=== PATIENT | female | born 1995 | race Caucasian/White ===

== ENCOUNTER 2017-04-23 11:28 | Emergency (ER) | payer SELFPAY ==
[2017-04-23] MEDS: SOD CHLORIDE 0.9% 1,000 ML IV (16:04)
[2017-04-23] MEDS: ACETAMINOPHEN 325 MG TAB PO (16:05)
[2017-04-23 16:10] LABS: ADD UMIC YES; UR ASCORBIC ACID 40 mg/dL (NEGATIVE); UR BACTERIA FEW /HPF (NONE SEEN); UR BILIRUBIN (Dip) NEGATIVE (NEGATIVE); UR BLOOD (Dip) NEGATIVE (NEGATIVE); UR CLARITY CLOUDY (CLEAR); UR COLOR YELLOW (YELLOW); UR GLUCOSE (Dip) NEGATIVE (NEGATIVE); UR KETONES (Dip) TRACE mg/dL (NEGATIVE); UR LEUKOCYTE ESTERASE (Dip) 3+ Leu/ul (NEGATIVE); UR MUCUS FEW /HPF (NONE SEEN); UR NITRITE (Dip) NEGATIVE (NEGATIVE); UR RBC 4 /HPF (0-5); UR SPECIFIC GRAVITY (Dip) 1.026 (1.003-1.030); UR SQUAMOUS EPITHELIAL CELL MODERATE /HPF (FEW); UR TOTAL PROTEIN (Dip) NEGATIVE (NEGATIVE); UR UROBILINOGEN (Dip) 1+ mg/dL (NEGATIVE); UR WBC 16 /HPF (0-5)
[2017-04-23 16:52] LABS: ADD MAN DIFF? NO
[2017-04-23 16:57] LABS: BASOPHIL # 0.1 10^3/ul (0.0-0.1); BASOPHILS % 0.4 % (0.0-2.0); EOSINOPHILS # 0.4 10^3/ul (0.0-0.5); EOSINOPHILS % 2.5 % (0.0-7.0); HEMATOCRIT 40.6 % (37.0-47.0); HEMOGLOBIN 13.4 g/dl (12.0-16.0); LYMPHOCYTES % 19.1 % (15.0-51.0); MEAN CORPUSCULAR HEMOGLOBIN 27.7 pg (29.0-33.0); MEAN CORPUSCULAR VOLUME 84.1 fl (82.0-101.0); MEAN PLATELET VOLUME 11.2 fl (7.4-10.4); MONOCYTE # 0.6 10^3/ul (0.3-0.9); MONOCYTES % 3.7 % (0.0-11.0); NEUTROPHIL # 11.6 10^3/ul (1.6-7.5); NEUTROPHILS % 73.9 % (39.0-77.0); PLATELET COUNT 303 10^3/UL (140-415); RED BLOOD COUNT 4.83 10^6/ul (4.20-5.40); RED CELL DISTRIBUTION WIDTH 14.5 % (11.5-14.5)
[2017-04-23 16:57] LABS: WHITE BLOOD COUNT 15.8 10^3/ul (4.8-10.8)
== END 2017-04-23 18:05 | disposition home or self-care (01) ==
LOC: FTE 11:28
DX: O99.89 Other specified diseases and conditions complicating pregnancy, childbirth and the puerperium (principal); R51 Headache; R10.2 Pelvic and perineal pain; Z3A.12 12 weeks gestation of pregnancy
CPT/HCPCS: 36415; 76801; 81001; 84702; 85025; 86900; 86901; 99285-25

== ENCOUNTER 2017-08-23 09:30 | Inpatient (IN) | payer MEDICAID ==
[2017-08-23 10:08] LABS: ADD MAN DIFF? NO
[2017-08-23 10:11] LABS: WHITE BLOOD COUNT 18.9 10^3/ul (4.8-10.8)
[2017-08-23 10:11] LABS: BASOPHILS % 0.2 % (0.0-2.0); HEMATOCRIT 36.6 % (37.0-47.0); HEMOGLOBIN 11.9 g/dl (12.0-16.0); LYMPHOCYTES # 0.8 10^3/ul (0.8-2.9); MEAN CORPUSCULAR HEMOGLOBIN 27.9 pg (29.0-33.0); MEAN CORPUSCULAR HGB CONC 32.5 g/dl (32.0-37.0); MEAN CORPUSCULAR VOLUME 85.7 fl (82.0-101.0); MEAN PLATELET VOLUME 11.1 fl (7.4-10.4); MONOCYTE # 1.1 10^3/ul (0.3-0.9); MONOCYTES % 5.8 % (0.0-11.0); NEUTROPHIL # 16.9 10^3/ul (1.6-7.5); NEUTROPHILS % 89.4 % (39.0-77.0); PLATELET COUNT 263 10^3/UL (140-415); RED BLOOD COUNT 4.27 10^6/ul (4.20-5.40); RED CELL DISTRIBUTION WIDTH 13.7 % (11.5-14.5)
[2017-08-23 10:31] LABS: ALANINE AMINOTRANSFERASE 16 IU/L (13-69); ALBUMIN 3.7 g/dl (3.3-4.9); ALBUMIN/GLOBULIN RATIO 1.05; ALKALINE PHOSPHATASE 178 IU/L (42-121); ANION GAP 15 (8-16); ASPARTATE AMINO TRANSFERASE 14 IU/L (15-46); BILIRUBIN,INDIRECT 0.5 mg/dl (0-1.1); BILIRUBIN,TOTAL 0.5 mg/dl (0.2-1.3); BLOOD UREA NITROGEN 6 mg/dl (7-20); CARBON DIOXIDE 21 mmol/L (21-31); CHLORIDE 106 mmol/L (97-110); CREATININE 0.51 mg/dl (0.44-1.00); GLUCOSE 103 mg/dl (70-220); POTASSIUM 3.6 mmol/L (3.5-5.1); SODIUM 138 mmol/L (135-144); TOTAL PROTEIN 7.2 g/dl (6.1-8.1)
[2017-08-23 10:36] LABS: URINE BLOOD (Dip) POC Negative (NEGATIVE); URINE GLUCOSE (Dip) POC Negative (NEGATIVE); URINE KETONES (Dip) POC 3+ (NEGATIVE); URINE LEUKOCYTE EST (Dip) POC Negative (NEGATIVE); URINE NITRITE (Dip) POC Negative (NEGATIVE); URINE TOTAL PROTEIN POC 1+ (NEGATIVE)
[2017-08-23] MEDS: LACTATED RINGER'S 1,000 ML IV ×2 (11:58→20:35)
[2017-08-23] MEDS ORDERED: ACETAMINOPHEN 325 MG TAB PO (12:00)
[2017-08-23] MEDS: CEFTRIAXONE 1 GM/NS 50 ML IVPB (12:24)
[2017-08-23 14:17] LABS: ADD UMIC YES; UR ASCORBIC ACID 20 mg/dL (NEGATIVE); UR BACTERIA FEW /HPF (NONE SEEN); UR BILIRUBIN (Dip) 1+ mg/dL (NEGATIVE); UR BLOOD (Dip) NEGATIVE (NEGATIVE); UR CLARITY TURBID (CLEAR); UR COLOR AMBER (YELLOW); UR GLUCOSE (Dip) NEGATIVE (NEGATIVE); UR KETONES (Dip) 2+ mg/dL (NEGATIVE); UR LEUKOCYTE ESTERASE (Dip) NEGATIVE Leu/ul (NEGATIVE); UR MUCUS MANY /HPF (NONE SEEN); UR NITRITE (Dip) NEGATIVE (NEGATIVE); UR RBC 2 /HPF (0-5); UR SPECIFIC GRAVITY (Dip) 1.027 (1.003-1.030); UR SQUAMOUS EPITHELIAL CELL MODERATE /HPF (FEW); UR TOTAL PROTEIN (Dip) 2+ mg/dl (NEGATIVE); UR UROBILINOGEN (Dip) NEGATIVE (NEGATIVE); UR WBC 15 /HPF (0-5)
[2017-08-24] MEDS: LACTATED RINGER'S 1,000 ML IV (03:48)
[2017-08-24] MEDS ORDERED: DOCUSATE SODIUM 100 MG CAP PO (09:00)
[2017-08-24] MEDS ORDERED: FERROUS SULFATE (EC) 325 MG TAB PO (09:00)
[2017-08-24] MEDS ORDERED: PRENATAL VITAMIN PO (09:00)
[2017-08-24] MEDS: SOD CHLORIDE 0.9% 1,000 ML IV (11:41)
[2017-08-24] MEDS: CEFTRIAXONE 1 GM/NS 50 ML IVPB (11:42)
[2017-08-24] MEDS ORDERED: CEFTRIAXONE 1 GM INJ IVPB (12:00)
== END 2017-08-24 14:30 | disposition home or self-care (01) | DRG 781 ==
LOC: OBT 09:30 → L-D 09:33 → OBT 11:28 → L-D 10:50
DX: O26.893 Other specified pregnancy related conditions, third trimester (principal); R19.7 Diarrhea, unspecified; O21.2 Late vomiting of pregnancy; Z3A.29 29 weeks gestation of pregnancy
CPT/HCPCS: 80053; 81001; 81003; 85025; 87075

== ENCOUNTER 2017-10-15 14:54 | Outpatient (CLI) | payer MEDICAID | END 2017-10-15 18:10 | disposition home or self-care (01) | LOC: OBT 14:54 → L-D 14:54 → OBT 18:10 | DX: O62.9 Abnormality of forces of labor, unspecified (principal); Z3A.37 37 weeks gestation of pregnancy | CPT/HCPCS: 76818 ==

== ENCOUNTER 2017-10-26 15:06 | Inpatient (IN) | payer MEDICAID ==
[2017-10-26] MEDS ORDERED: LIDOCAINE 1% (MPF) 30 ML INJ INJ (16:00)
[2017-10-26] MEDS ORDERED: METHYLERGONOVINE 0.2 MG INJ IM (16:00)
[2017-10-26] MEDS ORDERED: OXYTOCIN 30 UNITS/LR 500 ML IV ×2 (16:00)
[2017-10-26] MEDS ORDERED: BUTORPHANOL 1 MG INJ IV (16:00)
[2017-10-26] MEDS ORDERED: CARBOPROST 250 MCG INJ IM (16:00)
[2017-10-26] MEDS ORDERED: MISOPROSTOL 200 MCG TAB PR (16:00)
[2017-10-26 16:24] LABS: ADD MAN DIFF? NO
[2017-10-26 16:28] LABS: BASOPHILS % 0.3 % (0.0-2.0); EOSINOPHILS # 0.1 10^3/ul (0.0-0.5); HEMATOCRIT 33.6 % (37.0-47.0); HEMOGLOBIN 10.5 g/dl (12.0-16.0); LYMPHOCYTES # 2.6 10^3/ul (0.8-2.9); LYMPHOCYTES % 21.2 % (15.0-51.0); MEAN CORPUSCULAR HGB CONC 31.3 g/dl (32.0-37.0); MEAN PLATELET VOLUME 12.3 fl (7.4-10.4); MONOCYTE # 0.6 10^3/ul (0.3-0.9); MONOCYTES % 5.1 % (0.0-11.0); NEUTROPHIL # 8.7 10^3/ul (1.6-7.5); NEUTROPHILS % 72.1 % (39.0-77.0); PLATELET COUNT 273 10^3/UL (140-415); RED CELL DISTRIBUTION WIDTH 14.6 % (11.5-14.5)
[2017-10-26 16:28] LABS: WHITE BLOOD COUNT 12.1 10^3/ul (4.8-10.8)
[2017-10-26 16:47] LABS: INR 0.86; PROTIME 11.8 Sec (11.9-14.9); PT RATIO 0.9
[2017-10-26 16:48] LABS: PARTIAL THROMBOPLASTIN TIME 28.8 Sec (25.0-35.0)
[2017-10-26] MEDS: LACTATED RINGER'S 1,000 ML IV* (17:26)
[2017-10-26] MEDS: AMPICILLIN 2 GM/NS (PMX) 100 ML IV (17:28)
[2017-10-26] MEDS: DINOPROSTONE 10 MG VAG SUPP VAG (18:45)
[2017-10-26] MEDS: AMPICILLIN 1 GM/NS (PMX) 50 ML IV (20:51)
[2017-10-27] MEDS: AMPICILLIN 1 GM/NS (PMX) 50 ML IV ×6 (00:28→20:22)
[2017-10-27] MEDS: LACTATED RINGER'S 1,000 ML IV* ×3 (00:28→19:50)
[2017-10-27] MEDS: DINOPROSTONE 10 MG VAG SUPP VAG (11:58)
[2017-10-27] MEDS: MINERAL OIL LIGHT 10 ML VIAL TOP (21:00)
[2017-10-27] MEDS ORDERED: MISOPROSTOL 100 MCG TAB PO (21:00)
[2017-10-27 21:21] LABS: RAPID PLASMA REAGIN NONREACTIVE (NR)
[2017-10-27] MEDS: MISOPROSTOL 25 MCG CAPSULE PO (21:47)
[2017-10-28] MEDS: AMPICILLIN 1 GM/NS (PMX) 50 ML IV ×6 (00:33→20:31)
[2017-10-28] MEDS: MISOPROSTOL 25 MCG CAPSULE PO ×3 (02:23→12:23)
[2017-10-28] MEDS: LACTATED RINGER'S 1,000 ML IV* ×4 (03:20→17:45)
[2017-10-28] MEDS: BUTORPHANOL 2 MG INJ IV (05:09)
[2017-10-28] MEDS ORDERED: FENTAnyl 2MCG/ML-ROPIV 0.2% 100 ML (09:31)
[2017-10-28] MEDS ORDERED: NALOXONE (0.4 MG/ML) INJ IV (10:30)
[2017-10-28] MEDS: FENTAnyl 2MCG/ML-ROPIV 0.2% 100 ML BAG EPI ×2 (17:24→21:53)
[2017-10-28] MEDS ORDERED: OXYTOCIN 30 UNITS/LR 500 ML IV (18:00)
[2017-10-29] MEDS: OXYTOCIN 30 UNITS/LR 500 ML IV ×4 (00:37→09:30)
[2017-10-29] MEDS: LACTATED RINGER'S 1,000 ML IV* ×2 (02:52→06:22)
[2017-10-29] MEDS ORDERED: ZOLPIDEM 5 MG TAB PO (03:00)
[2017-10-29] MEDS ORDERED: METHYLERGONOVINE 0.2 MG INJ IM (03:00)
[2017-10-29] MEDS ORDERED: MISOPROSTOL 200 MCG TAB PR (03:00)
[2017-10-29] MEDS ORDERED: CARBOPROST 250 MCG INJ IM (03:00)
[2017-10-29] MEDS ORDERED: OXYCODONE/ASPIRIN (4.88/325) TAB PO ×2 (03:00)
[2017-10-29] MEDS ORDERED: OXYTOCIN 30 UNITS/LR 500 ML IV (03:00)
[2017-10-29] MEDS: IBUPROFEN 600 MG TAB PO ×4 (06:22→23:26)
[2017-10-29] MEDS: SENNA/DOCUSATE NA (8.6MG/50MG) TAB PO ×2 (09:39→20:48)
[2017-10-29] MEDS: LANOLIN 7 GM TUBE TOP (09:44)
[2017-10-29] MEDS: WITCH HAZEL/GLYCERIN PAD PR (09:45)
[2017-10-29] MEDS: BENZOCAINE 20% 56 ML SPRAY TOP (09:45)
[2017-10-30] MEDS: IBUPROFEN 600 MG TAB PO ×3 (05:44→17:59)
[2017-10-30 08:20] LABS: ADD MAN DIFF? NO
[2017-10-30 08:28] LABS: BASOPHIL # 0.1 10^3/ul (0.0-0.1); BASOPHILS % 0.5 % (0.0-2.0); EOSINOPHILS # 0.2 10^3/ul (0.0-0.5); EOSINOPHILS % 1.7 % (0.0-7.0); HEMATOCRIT 29.2 % (37.0-47.0); LYMPHOCYTES # 3.5 10^3/ul (0.8-2.9); LYMPHOCYTES % 26.7 % (15.0-51.0); MEAN CORPUSCULAR HEMOGLOBIN 24.7 pg (29.0-33.0); MEAN CORPUSCULAR HGB CONC 30.8 g/dl (32.0-37.0); MEAN PLATELET VOLUME 12.1 fl (7.4-10.4); MONOCYTE # 0.8 10^3/ul (0.3-0.9); NEUTROPHIL # 8.4 10^3/ul (1.6-7.5); NEUTROPHILS % 64.7 % (39.0-77.0); PLATELET COUNT 254 10^3/UL (140-415); RED BLOOD COUNT 3.65 10^6/ul (4.20-5.40); RED CELL DISTRIBUTION WIDTH 15.3 % (11.5-14.5)
[2017-10-30 08:28] LABS: WHITE BLOOD COUNT 12.9 10^3/ul (4.8-10.8)
[2017-10-30] MEDS: SENNA/DOCUSATE NA (8.6MG/50MG) TAB PO ×2 (09:14→21:05)
[2017-10-31] MEDS: IBUPROFEN 600 MG TAB PO ×3 (00:12→11:47)
[2017-10-31] MEDS: SENNA/DOCUSATE NA (8.6MG/50MG) TAB PO (09:49)
[2017-10-31] MEDS: DIPHTH/TET/ACEL PERTUSS (ADULT) 0.5 ML VIAL IM* (11:49)
== END 2017-10-31 15:20 | disposition home or self-care (01) | DRG 775 ==
LOC: OBT 15:06 → PP1 10-29 02:35 → L-D 15:07 → OBT 16:00 → L-D 16:00
PROVIDERS: Obstetrics & Gynecology
PROC: 10E0XZZ Delivery of Products of Conception, External Approach (ICD-10-PCS; principal; 2017-10-28)
PROC: 0UQGXZZ Repair Vagina, External Approach (ICD-10-PCS; 2017-10-28)
PROC: 3E033VJ Introduction of Other Hormone into Peripheral Vein, Percutaneous Approach (ICD-10-PCS; 2017-10-28)
DX: O69.81X0 Labor and delivery complicated by cord around neck, without compression, not applicable or unspecified (principal); O71.4 Obstetric high vaginal laceration alone; Z3A.39 39 weeks gestation of pregnancy; Z37.0 Single live birth
CPT/HCPCS: 76815; 85025; 85610; 85730; 86592; 86850; 86900; 86901; 90715